=== PATIENT | female | born 1930 | race Caucasian/White ===

== ENCOUNTER 2019-01-22 10:05 | Inpatient (IN) | payer BC, MEDICAID, MEDICARE ==
[~2019-01-22] VITALS: Ht 154.9 cm; Wt 54.4 kg
[~2019-01-22 10:05] MED LIST: ASPI-986 PO; DIGOXIN PO; FLUD0.1T PO; KLOR CON; LISI2.5T47 PO; RIVA20TA PO
[2019-01-22 11:06] LABS: EOSINOPHILS % 1.3 % (0.0-5.0); HEMATOCRIT. 36.2 % (36.0-48.0); HEMOGLOBIN. 12.1 g/dL (12.0-16.0); LYMPHOCYTES % 31.5 % (20.0-50.0); MEAN CORPUSCULAR VOLUME 95.5 fL (81.0-99.0); MEAN PLATELET VOLUME 8.3 fl (7.4-10.4); NEUTROPHILS % 57.2 % (40.0-76.0); PLATELET 167 x1000/uL (130-400); RED BLOOD CELL COUNT 3.79 mill/uL (4.2-5.4); RED CELL DISTRIBUTION WIDTH 13.9 % (11.6-14.6)
[2019-01-22 11:11] LABS: CHLORIDE 103 mEq/L (98-107)
[2019-01-22 11:14] LABS: INR 1.4
[2019-01-22] MEDS ORDERED: DILTIAZEM HCL 5MG/ML 5ML VIAL IV NR (11:30)
[2019-01-22] MEDS ORDERED: DILTIAZEM HCL 30MG TABLET PO ONE (11:30)
[2019-01-22] MEDS ORDERED: FUROSEMIDE 20MG/2ML VIAL IVP NR (11:45)
[2019-01-22] MEDS ORDERED: MAGNESIUM/ALUMINUM HYDROXIDE/SIMETHICONE 30ML UDC PO PRN (13:15)
[2019-01-22] MEDS ORDERED: DIPHENHYDRAMINE 50MG/ML VIAL IV PRN (13:15)
[2019-01-22] MEDS ORDERED: ONDANSETRON HCL 4MG/2ML INJ IV PRN (13:15)
[2019-01-22] MEDS ORDERED: CLONIDINE 0.1MG TABLET PO PRN (13:15)
[2019-01-22] MEDS ORDERED: GUAIFENESIN 200MG/10ML SUGAR FREE UDC PO PRN (13:15)
[2019-01-22] MEDS ORDERED: IPRATROPIUM/ALBUTEROL 0.5-3(2.5)MG/3ML NEB INH PRN (13:15)
[2019-01-22] MEDS ORDERED: ACETAMINOPHEN 325MG TABLET PO PRN (13:15)
[2019-01-22] MEDS ORDERED: DOCUSATE SODIUM 100MG CAPSULE PO PRN (13:15)
[2019-01-22] MEDS ORDERED: HYDROCODONE/ACETAMINOPHEN 5/325MG TABLET PO PRN (13:15)
[2019-01-22 14:00] VITALS: BP 130/73
[2019-01-22] MEDS ORDERED: ENOXAPARIN 30MG/0.3ML SYR SUBCUT SCH (14:00)
[2019-01-22 15:26] LABS: PHOSPHORUS 3.6 mg/dL (2.5-4.9)
[2019-01-22 15:30] LABS: CREATINE KINASE MB FRACTION 1.3 ng/mL (0.5-3.6)
[2019-01-22 16:00] VITALS: BP 129/81
[2019-01-22] MEDS ORDERED: ENOXAPARIN 60MG/0.6ML SYR SUBCUT SCH (17:00)
[2019-01-22] MEDS ORDERED: METO-385 PO (17:35)
[2019-01-22] MEDS: DILTIAZEM HCL 30MG TABLET PO SCH ×2 (18:35→23:58)
[2019-01-22 20:00] VITALS: BP 112/69
[2019-01-23 00:21] VITALS: BP 124/73
[2019-01-23 04:00] VITALS: BP 127/61
[2019-01-23] MEDS: DILTIAZEM HCL 30MG TABLET PO SCH ×2 (06:20→12:15)
[2019-01-23 06:56] LABS: CHLORIDE 103 mEq/L (98-107)
[2019-01-23 07:06] LABS: LDL CHOLESTEROL 91 mg/dL (5-100)
[2019-01-23 07:08] LABS: HDL CHOLESTEROL 33 mg/dL (40-59)
[2019-01-23 07:14] LABS: BASOPHILS % 1.2 % (0.0-2.0); HEMATOCRIT. 33.5 % (36.0-48.0); HEMOGLOBIN. 11.4 g/dL (12.0-16.0); LYMPHOCYTES % 42.7 % (20.0-50.0); MEAN CORPUSCULAR VOLUME 94.2 fL (81.0-99.0); MEAN PLATELET VOLUME 8.5 fl (7.4-10.4); MONOCYTES % 10.8 % (2.0-8.0); NEUTROPHILS % 41.3 % (40.0-76.0); PLATELET 171 x1000/uL (130-400); RED BLOOD CELL COUNT 3.55 mill/uL (4.2-5.4); RED CELL DISTRIBUTION WIDTH 14.2 % (11.6-14.6)
[2019-01-23 08:00] VITALS: BP 107/59
[2019-01-23 09:14] VITALS: BP 107/59
[2019-01-23 12:20] VITALS: BP 105/59
[2019-01-23 14:21] LABS: CLARITY URINE CLEAR (CLEAR); COLOR URINE YELLOW (YELLOW); KETONES URINE NEGATIVE (NEGATIVE); LEUKOCYTE ESTERASE URINE NEGATIVE (NEGATIVE); NITRITE URINE NEGATIVE (NEGATIVE); OCCULT BLOOD URINE NEGATIVE (NEGATIVE); PROTEIN URINE NEGATIVE (NEGATIVE); SPECIFIC GRAVITY URINE 1.011 (1.005-1.030); UROBILINOGEN URINE 0.2 E.U./dL (0.2-1.0)
[2019-01-23 15:17] VITALS: BP 105/59
== END 2019-01-23 17:15 | disposition home health service (06) | DRG 308 ==
LOC: ER 10:05 → 5WST 11:56 → EDBEDREQ 11:58 → ENRESERV 12:55
PROVIDERS: ADMIT Internal Medicine; ATTEND Internal Medicine
DX: I48.1 Persistent atrial fibrillation (principal); I50.33 Acute on chronic diastolic (congestive) heart failure; C95.90 Leukemia, unspecified not having achieved remission; I11.0 Hypertensive heart disease with heart failure; I42.0 Dilated cardiomyopathy; Z79.01 Long term (current) use of anticoagulants; Z90.710 Acquired absence of both cervix and uterus; Z92.21 Personal history of antineoplastic chemotherapy
CPT/HCPCS: 36415; 71045; 80061; 82550; 82553; 83605; 83735; 83880; 84100; 84443; 84484; 85379; 93005; 93306; 93970; 96374; 96375; 97162; 97165; 97535; 99285; J1650; J1940; J3490

== ENCOUNTER 2019-03-03 11:46 | Inpatient (IN) | payer MEDICARE ==
[2019-03-03] VITALS (7 sets, daily range): BP systolic 101–133; BP diastolic 50–83
[~2019-03-03] VITALS: Ht 154.9 cm; Wt 51.3 kg
[~2019-03-03 11:46] MED LIST changes: -ASPI-986 PO; -FLUD0.1T PO; -LISI2.5T47 PO; +METO-385 PO
[2019-03-03] MEDS ORDERED: SODIUM CHLORIDE 0.9% 500 ML IV ONE (12:15)
[2019-03-03] MEDS ORDERED: DILTIAZEM HCL 125 MG in DEXT 5% WATER 100 ML IV ONE (12:15)
[2019-03-03 12:22] LABS: BASOPHILS % 0.3 % (0.0-2.0); EOSINOPHILS % 0.3 % (0.0-5.0); HEMATOCRIT. 38.9 % (36.0-48.0); HEMOGLOBIN. 13.4 g/dL (12.0-16.0); LYMPHOCYTES % 38.7 % (20.0-50.0); MEAN CORPUSCULAR HEMOGLOBIN 32.1 pg (28.0-32.0); MEAN CORPUSCULAR VOLUME 93.1 fL (81.0-99.0); MEAN PLATELET VOLUME 7.5 fl (7.4-10.4); MONOCYTES % 7.3 % (2.0-8.0); NEUTROPHILS % 53.4 % (40.0-76.0); PLATELET 212 x1000/uL (130-400); RED BLOOD CELL COUNT 4.18 mill/uL (4.2-5.4); RED CELL DISTRIBUTION WIDTH 13.6 % (11.6-14.6)
[2019-03-03 12:26] LABS: CHLORIDE 97 mEq/L (98-107)
[2019-03-03 12:48] LABS: INR 1.3; PARTIAL THROMBOPLASTIN TIME 36.1 sec (23.4-31.0); PROTHROMBIN TIME 13.4 sec (9.6-11.0)
[2019-03-03] MEDS ORDERED: DILTIAZEM HCL 5MG/ML 5ML VIAL IV PRN (17:30)
[2019-03-03] MEDS ORDERED: DILTIAZEM HCL 5MG/ML 5ML VIAL IV NR (17:30)
[2019-03-03] MEDS ORDERED: DILTIAZEM HCL 125 MG in DEXT 5% WATER 100 ML IV SCH (17:30)
[2019-03-03] MEDS: DILTIAZEM HCL 30MG TABLET PO SCH (18:20)
[2019-03-03] MEDS: METOPROLOL TARTRATE 25MG TABLET PO SCH (20:25)
[2019-03-03] MEDS ORDERED: METOPROLOL SUCCINATE PO SCH (21:00)
[2019-03-04] VITALS (12 sets, daily range): BP systolic 105–159; BP diastolic 47–91
[2019-03-04] MEDS: DILTIAZEM HCL 30MG TABLET PO SCH ×4 (06:15→21:29)
[2019-03-04 06:29] LABS: BASOPHILS % 0.8 % (0.0-2.0); EOSINOPHILS % 1.7 % (0.0-5.0); HEMATOCRIT. 37.5 % (36.0-48.0); HEMOGLOBIN. 12.9 g/dL (12.0-16.0); LYMPHOCYTES % 35.6 % (20.0-50.0); MEAN CORPUSCULAR VOLUME 93.1 fL (81.0-99.0); MEAN PLATELET VOLUME 7.4 fl (7.4-10.4); MONOCYTES % 9.6 % (2.0-8.0); NEUTROPHILS % 52.3 % (40.0-76.0); PLATELET 189 x1000/uL (130-400); RED BLOOD CELL COUNT 4.03 mill/uL (4.2-5.4); RED CELL DISTRIBUTION WIDTH 13.9 % (11.6-14.6)
[2019-03-04] MEDS ORDERED: MEDICATION NOT ON FORMULARY EA (Rivaroxaban (Xarelto) 1 TAB) PO SCH (09:00)
[2019-03-04] MEDS: METOPROLOL TARTRATE 25MG TABLET PO SCH (09:06)
[2019-03-04] MEDS: APIXABAN 2.5 MG TABLET PO SCH ×2 (13:53→21:24)
[2019-03-04] MEDS ORDERED: DILTIAZEM HCL 30MG TABLET PO SCH (14:00)
[2019-03-04] MEDS ORDERED: RIVAROXABAN 15 MG TABLET PO SCH (17:20)
[2019-03-04] MEDS ORDERED: DIGOXIN 125MCG TABLET PO SCH (18:00)
[2019-03-05] VITALS (11 sets, daily range): BP systolic 101–149; BP diastolic 45–80
[2019-03-05] MEDS: DILTIAZEM HCL 30MG TABLET PO SCH (05:31)
[2019-03-05 06:31] LABS: HEMATOCRIT 38.4 % (36.0-48.0); HEMOGLOBIN 13.3 g/dL (12.0-16.0); MEAN CORPUSCULAR HEMOGLOBIN 32.3 pg (28.0-32.0); MEAN CORPUSCULAR VOLUME 93.4 fL (81.0-99.0); PLATELET 199 x1000/uL (130-400); RED BLOOD CELL COUNT 4.11 mill/uL (4.2-5.4); RED CELL DISTRIBUTION WIDTH 13.5 % (11.6-14.6)
[2019-03-05 07:07] LABS: CHLORIDE 103 mEq/L (98-107)
[2019-03-05] MEDS: APIXABAN 2.5 MG TABLET PO SCH ×2 (08:25→18:23)
[2019-03-05] MEDS ORDERED: DILTIAZEM HCL 120MG CAPSULE CD 24HR PO SCH (12:00)
== END 2019-03-05 18:38 | disposition home or self-care (01) | DRG 309 ==
LOC: ER 11:48 → 3WST 13:50 → EDBEDREQSVC 13:52 → ENRESERV 14:20
PROVIDERS: ADMIT Family Medicine; ATTEND Family Medicine
DX: I48.2 Chronic atrial fibrillation (principal); E87.1 Hypo-osmolality and hyponatremia; J84.9 Interstitial pulmonary disease, unspecified; I50.32 Chronic diastolic (congestive) heart failure; I11.0 Hypertensive heart disease with heart failure; J44.9 Chronic obstructive pulmonary disease, unspecified; F17.210 Nicotine dependence, cigarettes, uncomplicated; Z79.01 Long term (current) use of anticoagulants; Z85.6 Personal history of leukemia; Z90.710 Acquired absence of both cervix and uterus; Z79.899 Other long term (current) drug therapy; Z98.49 Cataract extraction status, unspecified eye; Z92.21 Personal history of antineoplastic chemotherapy
CPT/HCPCS: 36415; 71045; 80048; 83880; 84484; 85027; 93005; 93306; 96374; 99285; J3490; J7040; J7060